=== PATIENT | male | born 1995 | race Caucasian/White ===

== ENCOUNTER 2022-08-15 18:40 | Inpatient (IN) | payer MEDICAID ==
[~2022-08-15] VITALS: Ht 165.1 cm; Wt 82.2 kg
[2022-08-15] MEDS ORDERED: ONDANSETRON HCL 4MG/2ML INJ IV STA (19:23)
[2022-08-15] MEDS ORDERED: ACETAMINOPHEN 325MG TABLET PO ONE (19:30)
[2022-08-15] MEDS ORDERED: SODIUM CHLORIDE 0.9% 1,000 ML IV ONE (19:30)
[2022-08-15 19:49] LABS: HEMATOCRIT. 42.2 % (42.0-52.0); HEMOGLOBIN. 14.4 g/dL (14.0-18.0); MEAN CORPUSCULAR HEMOGLOBIN 31.3 pg (28.0-32.0); MEAN CORPUSCULAR VOLUME 91.5 fL (80.0-94.0); MEAN PLATELET VOLUME 7.7 fl (7.4-10.4); PLATELET 388 x1000/uL (130-400); RED BLOOD CELL COUNT 4.61 mill/uL (4.7-6.1); RED CELL DISTRIBUTION WIDTH 14.8 % (11.6-14.6)
[2022-08-15 19:56] LABS: CHLORIDE 94 mEq/L (98-107)
[2022-08-15 20:13] LABS: PLATELET ESTIMATE NORMAL
[2022-08-15 20:41] LABS: INR 1.4; PROTHROMBIN TIME 14.7 sec (9.6-11.0)
[2022-08-15] MEDS ORDERED: CEFTRIAXONE 2 G PREMIX 50 ML IV ONE (20:45)
[2022-08-15] MEDS ORDERED: VANCOMYCIN 1G PREMIX 200 ML IV SCH (20:45)
[2022-08-15] MEDS ORDERED: CEFTRIAXONE 2 G in DEXTROSE 5% WATER 50 ML IV NR (20:50)
[2022-08-15] MEDS ORDERED: DEXAMETHASONE 10 MG/ML VIAL IV ONE (21:15)
[2022-08-15] MEDS ORDERED: IOHEXOL-300 100 ML BOTTLE ONE (22:33)
[2022-08-16 04:20] VITALS: BP 98/78
[2022-08-16] MEDS ORDERED: ONDANSETRON HCL 4MG/2ML INJ IV PRN (05:45)
[2022-08-16] MEDS ORDERED: ACETAMINOPHEN 325MG TABLET PO PRN (05:45)
[2022-08-16] MEDS ORDERED: TRAMADOL 50MG TABLET PO PRN (05:45)
[2022-08-16 06:57] LABS: HEMATOCRIT. 45.3 % (42.0-52.0); HEMOGLOBIN. 15.2 g/dL (14.0-18.0); MEAN CORPUSCULAR HEMOGLOBIN 31.5 pg (28.0-32.0); MEAN CORPUSCULAR VOLUME 93.7 fL (80.0-94.0); MEAN PLATELET VOLUME 8.3 fl (7.4-10.4); PLATELET 391 x1000/uL (130-400); RED BLOOD CELL COUNT 4.83 mill/uL (4.7-6.1); RED CELL DISTRIBUTION WIDTH 15.2 % (11.6-14.6)
[2022-08-16] MEDS: SODIUM CHLORIDE 0.9% 1,000 ML IV SCH ×2 (06:57→17:41)
[2022-08-16] MEDS ORDERED: GUAIFENESIN 200MG/10ML SUGAR FREE UDC PO PRN (07:00)
[2022-08-16 09:00] VITALS: BP 102/56
[2022-08-16] MEDS ORDERED: DOCUSATE SODIUM 100MG CAPSULE PO PRN (09:00)
[2022-08-16] MEDS ORDERED: MAGNESIUM/ALUMINUM HYDROXIDE/SIMETHICONE 30ML UDC PO PRN (09:00)
[2022-08-16] MEDS: VANCOMYCIN 1G PREMIX 200 ML IV SCH ×2 (11:14→17:41)
[2022-08-16 12:00] VITALS: BP 113/70
[2022-08-16 12:49] LABS: PLATELET ESTIMATE NORMAL
[2022-08-16] MEDS ORDERED: CEFTRIAXONE 2 G PREMIX 50 ML IV SCH (15:00)
[2022-08-16 15:11] VITALS: BP 113/70
[2022-08-16] MEDS: CEFTRIAXONE 2 G in DEXTROSE 5% WATER 50 ML IV SCH (16:02)
[2022-08-16 20:00] VITALS: BP 117/78
[2022-08-16] MEDS ORDERED: CEFTRIAXONE 1,000 MG in DEXTROSE 5% WATER 50 ML IV SCH (20:00)
[2022-08-17] VITALS: BP 106/61
[2022-08-17] MEDS: VANCOMYCIN 1G PREMIX 200 ML IV SCH ×2 (01:09→10:00)
[2022-08-17 04:00] VITALS: BP_SYST 109; BP_SYST 110; BP_DIAS 60; BP_DIAS 73
[2022-08-17] MEDS: CEFTRIAXONE 2 G in DEXTROSE 5% WATER 50 ML IV SCH ×2 (04:22→15:28)
[2022-08-17 08:00] VITALS: BP 108/70
[2022-08-17] MEDS: SODIUM CHLORIDE 0.9% 1,000 ML IV SCH ×2 (08:28→22:24)
[2022-08-17 08:47] LABS: CHLORIDE 99 mEq/L (98-107)
[2022-08-17 08:57] LABS: HDL CHOLESTEROL 11 mg/dL (40-59); LDL CHOLESTEROL 67 mg/dL (5-100)
[2022-08-17 12:00] VITALS: BP 111/69
[2022-08-17 13:05] LABS: BASOPHILS % 0.6 % (0.0-2.0); EOSINOPHILS % 0.4 % (0.0-5.0); HEMATOCRIT. 41.4 % (42.0-52.0); HEMOGLOBIN. 13.8 g/dL (14.0-18.0); LYMPHOCYTES % 10.2 % (20.0-50.0); MEAN CORPUSCULAR HEMOGLOBIN 30.8 pg (28.0-32.0); MEAN CORPUSCULAR VOLUME 92.6 fL (80.0-94.0); MEAN PLATELET VOLUME 9.2 fl (7.4-10.4); MONOCYTES % 5.3 % (2.0-8.0); NEUTROPHILS % 83.5 % (40.0-76.0); PLATELET 397 x1000/uL (130-400); RED BLOOD CELL COUNT 4.47 mill/uL (4.7-6.1); RED CELL DISTRIBUTION WIDTH 15.1 % (11.6-14.6)
[2022-08-17 16:00] VITALS: BP 111/69
[2022-08-17 20:00] VITALS: BP 121/76
[2022-08-18] VITALS: BP 126/80
[2022-08-18] MEDS: VANCOMYCIN 1G PREMIX 200 ML IV SCH ×3 (01:37→17:51)
[2022-08-18 04:00] VITALS: BP_SYST 104; BP_SYST 112; BP_DIAS 70; BP_DIAS 74
[2022-08-18] MEDS: CEFTRIAXONE 2 G in DEXTROSE 5% WATER 50 ML IV SCH ×2 (04:16→16:39)
[2022-08-18 08:00] VITALS: BP 108/73
[2022-08-18] MEDS: SODIUM CHLORIDE 0.9% 1,000 ML IV SCH (10:10)
[2022-08-18 12:00] VITALS: BP 113/69
[2022-08-18 16:00] VITALS: BP 104/74
[2022-08-18 20:00] VITALS: BP 118/79
[2022-08-19] MEDS: VANCOMYCIN 1G PREMIX 200 ML IV SCH ×2 (01:01→09:56)
[2022-08-19] MEDS: SODIUM CHLORIDE 0.9% 1,000 ML IV SCH (01:05)
[2022-08-19] MEDS: CEFTRIAXONE 2 G in DEXTROSE 5% WATER 50 ML IV SCH (03:52)
[2022-08-19 07:46] LABS: BASOPHILS % 0.3 % (0.0-2.0); EOSINOPHILS % 0.7 % (0.0-5.0); HEMOGLOBIN. 14.5 g/dL (14.0-18.0); LYMPHOCYTES % 15.4 % (20.0-50.0); MEAN PLATELET VOLUME 7.9 fl (7.4-10.4); MONOCYTES % 6.2 % (2.0-8.0); NEUTROPHILS % 77.4 % (40.0-76.0); PLATELET 470 x1000/uL (130-400); RED BLOOD CELL COUNT 4.67 mill/uL (4.7-6.1); RED CELL DISTRIBUTION WIDTH 15.4 % (11.6-14.6)
[2022-08-19 08:00] VITALS: BP 104/77
[2022-08-19 11:24] VITALS: BP 135/67
[2022-08-19 12:00] VITALS: BP 135/67
== END 2022-08-19 13:50 | disposition home or self-care (01) | DRG 720 ==
LOC: ER 18:40 → MICUSO 23:41 → EDBEDREQSVC 23:53 → EDBEDREQTM 23:53 → EDBEDREQ 23:53 → 7WST 08-16 05:02 → 7EST 08-16 15:35
PROVIDERS: ADMIT Hospitalist; ATTEND Hospitalist
DX: A41.89 Other specified sepsis (principal); U07.1 COVID-19; E43 Unspecified severe protein-calorie malnutrition; L03.312 Cellulitis of back [any part except buttock and flank]; G03.9 Meningitis, unspecified; F12.90 Cannabis use, unspecified, uncomplicated; R74.01 Elevation of levels of liver transaminase levels; E87.1 Hypo-osmolality and hyponatremia; Z68.30 Body mass index [BMI] 30.0-30.9, adult
CPT/HCPCS: 36415; 71045; 74177; 80053; 80061; 80202; 83605; 84145; 85025; 87426; 87804; 93005; 99291; J0696; J1100; J2405; J3370; J7030; J7060; Q9967